=== PATIENT | male | born 1965 | race African-American/Black ===

== ENCOUNTER 2023-08-01 12:12 | Outpatient (CLI) | payer SELFPAY ==
[2023-08-01 13:02] LABS: Hematocrit 43.9 % (38.8-50.0); Hemoglobin 14.7 g/dL (13.5-17.5); Mean Corpuscular HGB CONC 33.5 g/dL (32.0-36.0); Mean Corpuscular Hemoglobin 27.5 pg (27.0-33.0); Mean Corpuscular Volume 82.2 fL (81.2-95.1); Mean Platelet Volume 10.3 fL (7.4-10.4); Platelet Count 165 10x3/uL (150-450); RBC Distribution Width 15.2 % (11.5-14.5); Red Blood Cell (RBC) Count 5.34 10x6/uL (4.32-5.72); White Blood Cell (WBC) Count 4.4 10x3/uL (3.5-10.5)
[2023-08-01 13:15] LABS: Bilirubin Neg (Negative); Blood, Urine 10 (Negative); Clarity Clear (Clear); Glucose, Urine (Dipstick) Normal (Negative); Ketone, Urine Negative (Negative); Leukocyte 100 (Negative); Nitrite Negative (Negative); Protein, Urine (Dipstick) Negative (Neg-Trace); Urobilinogen Normal mg/dL (Less than 2)
[2023-08-01 13:27] LABS: PTT 29.9 sec (22.0-33.0); Prothrombin Time 10.9 sec (9.5-12.1)
[2023-08-01 13:30] LABS: Anion Gap 12 mmol/L (10-20); BUN (Urea Nitrogen) 12 mg/dL (8.4-25.7); Calc. Creatinine Clearance 0 mL/min (70-130); Calcium 9.5 mg/dL (7.8-10.44); Carbon Dioxide 27 mmol/L (22-29); Chloride 105 mmol/L (98-107); Estimated GFR 83; Glucose 97 mg/dL (70-105); Potassium 4.4 mmol/L (3.5-5.1); Sodium 140 mmol/L (136-145)
[2023-08-01 14:47] LABS: RBC/HPF 0-3 HPF (0-3)
[2023-08-01 14:48] LABS: Bacteria/HPF 3+ HPF (None Seen); Renal Epithelial 0-3 HPF (None Seen); Squamous Epithelial 0-3 HPF (0-3); Transitional Epithelial 0-3 HPF (None Seen)
[2023-08-01 14:49] LABS: Triple Phosphate Crystal 4+ HPF (None Seen)
== END 2023-08-01 12:13 | disposition home or self-care (01) ==
LOC: LABBT 12:12
PROVIDERS: ATTEND Urology
DX: Z01.818 Encounter for other preprocedural examination (principal); N35.916 Unspecified urethral stricture, male, overlapping sites; N40.1 Benign prostatic hyperplasia with lower urinary tract symptoms; N52.01 Erectile dysfunction due to arterial insufficiency; N48.9 Disorder of penis, unspecified; N50.89 Other specified disorders of the male genital organs
CPT/HCPCS: 80048; 81001; 85027; 85610; 85730; 87077; 87086; 93005; 93010

== ENCOUNTER 2023-12-27 09:43 | Emergency (ER) | payer OTHER, SELFPAY ==
[2023-12-27] MEDS ORDERED: Ketorolac Tromethamine 30 MG (1 mL) VIAL ONE (10:27)
== END 2023-12-27 12:00 | disposition home or self-care (01) ==
LOC: ERS 09:43
DX: S16.1XXA Strain of muscle, fascia and tendon at neck level, initial encounter (principal); M79.2 Neuralgia and neuritis, unspecified; I10 Essential (primary) hypertension; V89.2XXA Person injured in unspecified motor-vehicle accident, traffic, initial encounter; Y93.89 Activity, other specified
CPT/HCPCS: 72125; 96372; J1885